=== PATIENT | male | born 1990 | race Caucasian/White ===

== ENCOUNTER 2016-08-20 17:11 | Emergency (ER) | payer OTHER ==
[~2016-08-20] VITALS: Ht 188 cm; Wt 112.0 kg
[2016-08-20 17:13] VITALS: Ht 188 cm; Wt 112.0 kg
[2016-08-20] MEDS ORDERED: KETOROLAC 60 MG INJ IM STA (18:04)
--- NOTE | 2016-08-20 19:44 | RADRPT ---
PROCEDURE: XR Cervical Spine. CLINICAL INDICATION: Cervical spine pain. TECHNIQUE: AP, lateral and odontoid views of the cervical spine were performed. The images were re viewed on a PACS workstation. COMPARISON: None available FINDINGS: There is diffuse straightening of the cervical spine without reversal of normal cervical lordosis. The vertebral body height and osseous mineralization are normal. There is no evidence of fracture or dislocation. There is no significant facet arthropathy. The uncovertebral joints are unremarkable. The intervertebral disc spaces are well maintained. There are no abnormal calcifications. The prever tebral soft tissues are normal. No radiopaque foreign bodies are identified. IMPRESSION: 1. Diffuse straightening of the cervical spine which may be related to paraspinal muscle spasm vers us positioning. 2. Otherwise, normal radiographs of the cervical spine. No significant degenerative disc disease o r evidence of fracture. RPTAT: [facility]AS .Arnie Oden MD, Date Time Electronically viewed and signed by .Arnie Oden MD, on 08/20/2016 19:44 .S/
--- NOTE | 2016-08-20 19:44 | RADRPT ---
PROCEDURE: XR Lumbar Spine. CLINICAL INDICATION: Lumbar spine pain. TECHNIQUE: AP, lateral, and cone-down lateral view of the lumbar spine were obtained. COMPARISON: No prior studies are available for comparison. FINDINGS: The alignment of the lumbar spine is within normal limits. The vertebral body heights and marrow de nsity are normal in appearance. There is preservation of the intervertebral disc spaces. There is mild to moderate facet spondylosis at L5-S1. The neural foramina appear patent. The paraspinal sof t tissues unremarkable. IMPRESSION: 1. Mild to moderate facet spondylosis at L5-S1 without definite neural foraminal narrowing. 2. No evidence of fracture or significant degenerative disc disease. RPTAT: [facility]AS .Arnie Oden MD, MD Date Time Electronically viewed and signed by .Arine Oden MD, on 08/20/2016 19:44 .S/
[2016-08-20] MEDS ORDERED: IBUP800T25 PO (19:47)
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
== END 2016-08-20 20:13 | disposition home or self-care (01) ==
LOC: FTE 17:11
DX: S16.1XXA Strain of muscle, fascia and tendon at neck level, initial encounter (principal); S39.92XA Unspecified injury of lower back, initial encounter; V49.40XA Driver injured in collision with unspecified motor vehicles in traffic accident, initial encounter
CPT/HCPCS: 72040; 72100; 96372; 99284; J1885